=== PATIENT | female | born 1950 | race African-American/Black ===

== ENCOUNTER 2023-01-29 04:17 | Emergency (ER) | payer MEDICARE, MEDICAID ==
[~2023-01-29] VITALS: Ht 167.6 cm; Wt 180.0 kg
[2023-01-29 04:19] VITALS: BP 0/0; PULSE 0; RESP 0; O2SAT 0
== END 2023-01-29 07:44 ==
LOC: ER 04:21 → EDBD 04:21 → ER 07:44
DX: I46.9 Cardiac arrest, cause unspecified (principal); F19.90 Other psychoactive substance use, unspecified, uncomplicated
CPT/HCPCS: 82962; 92950; 99291